=== PATIENT | female | born 1995 | race Caucasian/White ===

== ENCOUNTER 2024-11-24 20:40 | Emergency (ER) | payer SELFPAY ==
[2024-11-24 20:42] VITALS: BP 122/79
[2024-11-24 22:53] VITALS: BP 117/84
[2024-11-24 22:55] VITALS: BMI 24.5
[2024-11-25] VITALS: BP 109/72
[2024-11-25] MEDS: VIBRAMYCIN 100 MG PO (00:29)
[2024-11-25] MEDS: FLAGYL 500 MG PO (00:29)
--- NOTE | 2024-11-25 00:54 | ED.SKININJ ---
HPI-Injury
General
Chief Complaint: Bite
Source: patient
Exam Limitations: none
Time Seen by Provider: 11/25/24 00:11
Nursing documentation reviewed up to this point in time: agreed with
History of Present Illness-Injury
Initial Injury comments:
29-year-old female with history as noted presents to the ER for evaluation of dog bite. 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 She has some pain and swelling in the hands.
She says that her own tetanus is up-to-date as of 2 years ago. Dog is reportedly healthy and vaccinated.
Review of Systems
Review of Systems
All Other Systems: ROS reviewed and negative except as documented in HPI and ROS
Skin: Reports other (Dog bite)
Phy Exam
Physical Exam
Physical Exam:
General: Well appearing and non-toxic
HEENT: protecting airway
Neck: appears supple
CV: No evidence of cyanosis
Resp: No accessory muscle use
Abd: Non-distended
Extremities: No deformities
Neuro: Alert
Psych: Normal affect
Skin: On exam of the right hand patient has small puncture wound on the dorsum of the hand as well as some small superficial scratches to the dorsum of the hand as well as the dorsum of the distal forearm on the right; she has small
ecchymosis/hematoma on the dorsum of the hand and diffuse tenderness over the dorsum of the hand
Scores
Heart Failure Risk
Heart Failure Risk Score: Not Applicable
Heart Score for Chest Pain Patients
STEMI patient?: Not applicable
Withdrawal Assessment of Alcohol
Withdrawal Assessment Completed?: Not applicable
Course
Orders/Labs/Results
Orders:
Orders
11/25/24 00:12
Doxycycline [Vibramycin] 100 mg PO NOW STA
MetroNIDAZOLE [Flagyl] 500 mg PO NOW STA
10/01/25 00:19
CR Hand - Right Min 3 Views Urgent
Comment:
Reason For Exam: dog bite, pain, swelling
Vital Signs
Initial and Last Documented VS:
Initial Vital Signs
Temp Pulse Resp BP Pulse Ox
36.9 C 91 19 122/79 100
11/24/24 20:42 11/24/24 20:42 11/24/24 20:42 11/24/24 20:42 11/24/24 20:42
Last Documented Vital Signs
Temp Pulse Resp BP Pulse Ox
36.9 C 91 19 117/84 98
11/24/24 20:42 11/24/24 20:42 11/24/24 20:42 11/24/24 22:53 11/24/24 22:55
MDM/Problems Addressed
Differential Diagnosis Includes:
Fracture, hematoma/contusion
MDM/Problems Addressed:
29-year-old female presents with a dog bite on her right hand this evening. She has some bruising and swelling and pain on the hand. X-ray of the hand reviewed by me shows no acute fracture. Regarding bite: Her tetanus is up-to-date, dog is
healthy and vaccinated no indication for rabies prophylaxis. Will start on prophylactic antibiotics, unfortunately patient is allergic to penicillin and so we will cover with doxycycline/metronidazole. Stable for discharge�spoke with patient about
infection risk and strict return precautions. All questions answered.
*Radiology
Radiology exam reviewed: preliminary read by ED provider
*Pulse Oximetry
SaO2: 98
Oxygen Mode of Delivery: Room air
Patient hypoxic: no (98%)
*Critical Care Note
Total Time (30-74mins, 75-104mins- exclusive of procedures): Not Applicable
Data Reviewed
Source: patient and family (Mother)
ED Attending Note
-
Portions of this chart may have been created with voice recognition software.� Occasional wrong word or��sound alike� substitutions may have occurred due to the inherent limitations of voice recognition software.
Discharge Plan
Departure
Patient Disposition: Home (Routine Discharge)
Date of Disposition: 11/25/24
Time of Disposition: 00:53
Patient with high blood pressure during this ER visit?: No
Discharge Problem:
Dog bite, Hematoma of hand
Instructions: Animal Bites (DC)
Prescriptions:
New
doxycycline hyclate 100 mg tablet
100 mg PO BID Qty: 20 0RF
metronidazole 500 mg tablet
500 mg PO TID Qty: 30 0RF
Referrals:
Tenthoff,Birdie Romero MD [Family Provider, [facility]] - Follow up in 1 week
Activity Restrictions/Additional Instructions:
Thank you for visiting the Emergency Department at [facility].
1. Please schedule a follow up appointment as directed. Call first thing tomorrow morning to make an appointment.
2. If indicated, please take your medications as instructed and indicated on discharge paperwork.
3. If any of your symptoms do not improve, or persist, or become more severe within 6-12 hours, please return to the emergency department for further care.
4. Please return to the emergency department if you develop a headache, neck pain/stiffness, fever greater than 100.4F, chest pain, shortness of breath, persistent nausea, vomiting, slurred speech, difficulty walking, numbness/tingling, weakness,
signs of infection or any other symptoms that are worrisome to you.
Please call [phone] if you have any questions.
Interventions
Interventions:
*Risk Screen - Suicide Last Done: 11/24/24 20:44
*General Assessment Last Done: 11/24/24 20:44
*Neglect/Abuse Screening Last Done: 11/24/24 20:44
*ED- Fall Risk Assessment Last Done: 11/24/24 22:55
*ED COVID-19 Vaccine History Last Done: 11/24/24 20:44
*ED Influenza Vaccine History Last Done: 11/24/24 20:44
ED-Skin Assessment Last Done: 11/24/24 22:55
Discharge Date and Time
Print Language: LAO
== END 2024-11-25 01:04 | disposition home or self-care (01) ==
LOC: EMR 20:40
PROVIDERS: EMERGENCY PHYSICIAN Emergency Medicine; FAMILY PHYSICIAN Family Medicine
DX: S61.431A Puncture wound without foreign body of right hand, initial encounter (principal); S60.221A Contusion of right hand, initial encounter; W54.0XXA Bitten by dog, initial encounter; Y99.0 Civilian activity done for income or pay; Z88.0 Allergy status to penicillin
CPT/HCPCS: 99283; 73130